=== PATIENT | female | born 1965 | race Caucasian/White ===

== ENCOUNTER 2025-01-12 08:26 | Emergency (ER) | payer OTHER, SELFPAY ==
[2025-01-12 08:40] VITALS: BP 124/66; PULSE 60; RESP 18; TEMP 36.1; O2SAT 100
--- NOTE | 2025-01-12 09:09 | ED.SKABFB ---
HPI - Skin/Abscess/Foreign Bdy General Chief complaint: Skin/Abscess/Foreign Body Stated complaint: poison lucinda Time Seen by Provider: 01/12/25 09:00 Source: patient and RN notes reviewed Mode of arrival: ambulatory Limitations: no limitations History of Present Illness HPI narrative: 59-year-old female presents Express Care complaining of rash for approximally 1 week. Patient reports having a rash on both of her arms says that starting to spread to her abdomen. Patient said 1 week ago she was working in the [place] and believes she might have gotten poison lucinda. Patient had in the left over triamcinolone cream that she has been applying to the rash with some relief. Patient reports that is pruritic. Patient denies any difficulty breathing, swelling to the face, lips, tongue, throat, fevers, body aches, chills, nausea, vomiting, or any other symptoms. Related Data Home Medications ?Medication ?Instructions ?Recorded ?Confirmed ?Last Taken ?Type hydroxyzine HCl 25 mg tablet mg 01/12/25 Unknown History Allergies Allergy/AdvReac Type Severity Reaction Status Date / Time amoxicillin Allergy Mild Rash Verified 01/12/25 08:45 Sulfa (Sulfonamide Allergy Mild Hives Verified 01/12/25 08:45 Antibiotics) Review of Systems Review of Systems: CONSTITUTIONAL: Denies fever, chills, or sweats. EYES: Denies visual changes, redness, or discharge. ENT: Denies rhinorrhea, congestion, sore throat, or otalgia. CARDIOVASCULAR: Denies chest pain, palpitations, or edema. RESPIRATORY: Denies cough or dyspnea. GASTROINTESTINAL: Denies abdominal pain, nausea, vomiting, or diarrhea. GENITOURINARY: Denies dysuria or hematuria. SKIN: Positive for rash and itching. MUSCULOSKELETAL: Denies back pain, joint pain, or myalgia. NEUROLOGIC: Denies headache, numbness, or weakness. PSYCHIATRIC: Denies anxiety or depression. All other systems reviewed are negative, except as documented in HPI. PMFSH Comments At the time of my signature, I reviewed and agree with the nursing past medical, surgical, social, and family history. There is no relevant family history pertinent to the patient complaint. Exam Narrative: GENERAL: This is a well-nourished, well-developed adult, in no apparent distress. They are non ill-appearing, nontoxic appearing. HEAD: normocephalic, atraumatic. EYES: Sclera clear/white. Conjunctiva normal. Vision is grossly intact. Extraocular movements intact EARS: External ears normal, Hearing grossly intact. NOSE: External nose normal THROAT: Mucous membranes moist, NECK: Neck supple, CARDIOVASCULAR: Regular rate and rhythm RESPIRATORY: Respiratory rate normal, respiratory effort nonlabored, no respiratory distress SKIN: Erythematous macular papular, vesicular rash scantly present to the patient's upper and lower right arm and left wrist. Small and scant erythematous macular papular vesicular rash present to the patient's abdomen. Rashes nontender. It is pruritic. No area of fluctuance no induration no exudate. NEURO: awake, alert, and oriented to person, place and time. There were no obvious focal neurologic abnormalities. EXTREMITIES: No joint tenderness, effusion, or edema noted. Course Course Emergency Course: Portions of this record may have been created with voice recognition software Level of Care: Express Care Visit Vital Signs Vital signs: Vital Signs Temperature 97.0 F L 01/12/25 08:40 Pulse Rate 60 01/12/25 08:40 Respiratory Rate 18 01/12/25 08:40 Blood Pressure 124/66 01/12/25 08:40 Pulse Oximetry 100 01/12/25 08:40 Oxygen Delivery Room Air 01/12/25 08:40 Temperature 97.0 F L 01/12/25 08:40 Pulse Rate 60 01/12/25 08:40 Respiratory Rate 18 01/12/25 08:40 Blood Pressure 124/66 01/12/25 08:40 Pulse Oximetry 100 01/12/25 08:40 Oxygen Delivery Room Air 01/12/25 08:40 Reviewed MDM - Skin/Abscess/Foreign Bdy MDM Narrative Medical decision making narrative: Patient likely has poison lucinda. Patient is very few the lesions. Will prescribe clobetasol cream. Discussed physical exam findings. Advised supportive measures and signs/symptoms to go to the ER. Pt is appropriate for outpt treatment and f/u. Differential Diagnosis Differential diagnosis: Likely urticaria, eczema, contact dermatitis and other (Poison lucinda) Critical Care Time Critical Care Time Critical Care Time: No Discharge Plan Discharge Clinical Impression: Poison lucinda Patient Disposition: Home Condition: Stable Instructions: Poison Lucinda (ED) Additional Instructions: Use the clobetasol cream as directed. Apply only to the affected area. Do not apply this cream to her face or genitals. You may use [id number] Tecnu soap as directed on the bottle to help remove the oils from poison lucinda off your skin. You may use calamine lotion, camphor, Benadryl cream as needed for itchiness symptoms. You may also take Zyrtec or Claritin as needed for allergy or itchiness symptoms. Follow-up PCP in 3-5 days. If you develop any worsening redness, swelling, discharge, fevers, breathing problems, or any other concerns please go to the ER immediately. Patient Language: Lithuanian Prescriptions: New clobetasol 0.05 % cream 1 applic topical BID 7 Days Qty: 30 0RF Rx Instructions: Apply to the affected area only. Do not apply to face or genitals. No Action hydroxyzine HCl 25 mg tablet Follow-up/Referrals: Xochitl,Anad [Other] Time of Disposition: 09:05
== END 2025-01-12 09:08 | disposition home or self-care (01) ==
DX: L23.7 Allergic contact dermatitis due to plants, except food (principal); F41.9 Anxiety disorder, unspecified
CPT/HCPCS: 99203; G0463